=== PATIENT | male | born 1955 | race Caucasian/White ===

== ENCOUNTER 2023-04-09 10:02 | Emergency (ER) | payer MEDICARE, OTHER, SELFPAY ==
[2023-04-09 10:07] VITALS: O2SAT 94
[2023-04-09 10:08] VITALS: BP 164/68; BP 164/89; PULSE 71; PULSE 72; RESP 14; TEMP 36.7; O2SAT 98; O2SAT 99; BMI 35.0
[2023-04-09 10:30] VITALS: PULSE 66; O2SAT 94
--- NOTE | 2023-04-09 10:34 | ED.ALLEREA ---
HPI - Allergic Reaction General Chief complaint: Allergic Reaction Stated complaint: allergic reaction/ swollen face/lips/eyes/ rash Time Seen by Provider: 04/09/23 10:08 Source: patient and family Mode of arrival: Ambulatory History of Present Illness HPI narrative: 67-year-old gentleman with a history of hyperlipidemia and coronary artery disease presents with rash and facial swelling. He noted the rash started about 3 or 4 days ago was mostly over the lower extremities, hive-like and itchy. He is noticed more over his upper abdomen particularly in intertriginous areas. This morning around 3:00 a.m. he noted increasing facial swelling in his lips were burning. He has not noted any fullness or swelling in the back of his throat, his tongue or any wheezing. He is not feeling short of breath. He does not note any new foods or exposures that might have explained the any of this. He has not started any new medications. He does have seasonal allergies and will occasionally use [id number] antihistamines to treat those. Related Data Home Medications Medication Instructions Recorded Confirmed ASPIRIN (Aspirin Low Dose) 81 mg PO Q DAY ##0 06/18/07 Simvastatin (Zocor) 40 mg PO Q DAY ##0 06/18/07 Previous Rx's Medication Instructions Recorded methylprednisolone 4 mg tablets in See Rx Instructions PO .COMPLEX 04/09/23 a dose pack (Medrol (Rocky)) #21 ea Allergies Allergy/AdvReac Type Severity Reaction Status Date / Time No Known Drug Allergies Allergy Verified 04/09/23 10:14 Review of Systems Review of Systems Narrative: Pertinent positive and negative findings as per HPI Patient History Medical History (Updated 04/09/23 @ 11:00 by Avis Vidal MD) Hyperlipidemia Social History Smoking Status: Current every day smoker Smoking Status: Current every day smoker tobacco type: cigarettes alcohol intake frequency: 0-2 drinks per day Substance Use Type: does not use Exam Initial Vital Signs Initial Vital Signs: Vital Signs Temperature 98.0 F 04/09/23 10:08 Pulse Rate 72 04/09/23 10:08 Respiratory Rate 14 04/09/23 10:08 Blood Pressure 164/68 H 04/09/23 10:08 Pulse Oximetry 99 04/09/23 10:08 Oxygen Delivery Method Room Air 04/09/23 10:08 General: Obvious swelling to face and lips but in no acute distress. Able to give a complete and coherent history. Well-nourished well-developed HEENT: Moist mucous membranes, normal sclera with reactive pupils, facial swelling including eye puffiness and lip swelling. No tongue or posterior pharyngeal swelling Neck: No cervical adenopathy, supple Respiratory: Lungs are clear to auscultation, no wheezing no rales no rhonchi. Full and symmetrical air movement Cardiac: Regular rate and rhythm no murmurs no bruits Abdomen: Soft, nontender, good bowel tones, no flank pain Skin: Urticarial erythematous areas over his lower extremities for the most part with some in the intertriginous folds of his torso. No vesicles, no purpura Neurologic: Grossly neurologically intact with no obvious asymmetries or abnormalities Extremities: No trauma, well perfused Psych: Cooperative, appropriate insight and affect Course Orders Ordered: Prednisone (Prednisone 20 Mg Tablet) 60 mg PO NOW ONE Stop: 04/09/23 10:48 Vital Signs Vital signs: Vital Signs - 8 hr 04/09/23 10:08 Temperature 98.0 F Pulse Rate 72 Respiratory Rate 14 Blood Pressure 164/68 H Pulse Oximetry 99 Oxygen Delivery Method Room Air MDM - Allergic Reaction MDM Narrative Medical decision making narrative: CC: Allergic reaction Complicating co-morbidities: Hyperlipidemia Data collected from: [facility], Medical records reviewed: No current records are available for review Differential considered: Acute allergic reaction, anaphylaxis, anasarca Exam documented above, pertinent findings include: Urticarial type reaction lower extremities with facial and lip swelling today with nothing that appears to be anaphylaxis and no airway involvement Treatments: 60 mg of prednisone with some relief. Discussion: 67-year-old gentleman with acute allergic reaction initially urticarial involving lower extremities now with some facial involvement, no airway involvement or wheezing. No evidence of acute anaphylaxis. He is given 60 mg of prednisone in the emergency department. It is given a prescription for a Medrol Dosepak, he has a Samira available at home and I have recommended that he take 1 daily for the next 7 days. He has Benadryl available at home I have told him he can take 1-2 at bedtime if needed. Clearly reviewed signs and symptoms of tongue posterior pharynx and lung involvement and encouraged him to return to the emergency department immediately should he have any wheezing or dyspnea. Seems to understand, questions are answered and he is safe for discharge Discharge Plan Departure Patient Disposition: Home Clinical Impression: Facial edema Allergic reaction Qualifiers: Encounter type: initial encounter Qualified Code(s): T78.40XA - Allergy, unspecified, initial encounter Instructions: DI for General Allergic Reactions Activity Restrictions/Additional Instructions: Thank you for coming in today You clearly are having moderate allergic reaction to something. Frequently, we are not able to figure out what that ?something? is. Please think about pills foods or something that would have gotten inside your body to give you total body symptoms. In the meantime, I have given you 60 mg of prednisone in the emergency department. Steroids help with acute allergic reactions. I have given you an additional 5 days of steroids in the form of a Medrol Dosepak. Please begin this tomorrow. Additionally, I would recommend that you take Samira daily starting today for the next week. You can also use Benadryl if needed at night to help with sleep If you find that you are getting worse or develop any new symptoms, please feel free to return to the emergency department for further evaluation. Prescriptions: New methylprednisolone [Medrol (Rocky)] 4 mg tablets,dose pack See Rx Instructions .ROUTE .COMPLEX Qty: 21 0RF Rx Instructions: orally per package directions No Action ASPIRIN (Aspirin Low Dose) 81 mg PO Q DAY Qty: 0 Simvastatin (Zocor) 40 mg PO Q DAY Qty: 0 Referrals: Miscellaneous,Doctor, MD [Primary Care Provider] - Stand Alone Forms: Patient Portal/API
[2023-04-09] MEDS: predniSONE 20 MG TABLET 60 MG PO (10:53)
== END 2023-04-09 11:05 | disposition home or self-care (01) ==
PROVIDERS: Emergency Provider Emergency Medicine
DX: T78.40XA Allergy, unspecified, initial encounter (principal); R60.9 Edema, unspecified; X58.XXXA Exposure to other specified factors, initial encounter
CPT/HCPCS: 99283